=== PATIENT | female | born 1985 | race Caucasian/White ===

== ENCOUNTER 2019-11-04 02:02 | Emergency (ER) | payer BC, OTHER ==
[~2019-11-04] VITALS: Ht 162.6 cm; Wt 76.4 kg
--- NOTE | 2019-11-04 02:20 | NUR ---
Allergic reaction started Thursday; seen for same and received multiple meds which did not help. Rash to entire body and swollen lips noted; symptoms have become worse since it started. No diff swallowing or throat swelling. Patient is in NAD. Respirations even and unlabored.
[2019-11-04] MEDS ORDERED: FAMOTIDINE 20 MG TABLET PO ONE (02:30)
[2019-11-04] MEDS ORDERED: DIPHENHYDRAMINE 25 MG CAPSULE PO ONE (02:30)
[2019-11-04] MEDS ORDERED: FAMOTIDINE 20 MG TABLET ONE (02:30)
[2019-11-04] MEDS ORDERED: EPINEPHRINE 1 MG/ML, 1ML SQ ONE (02:30)
[2019-11-04] MEDS ORDERED: DIPHENHYDRAMINE 25 MG CAPSULE ONE (02:31)
[2019-11-04] MEDS ORDERED: EPINEPHRINE 1 MG/ML, 1ML ONE (02:31)
[2019-11-04 02:59] LABS: BASOPHILS # (AUTO) 0.03 x10^3/uL (0-0.1); BASOPHILS % (AUTO) 0 % (0-1); EOSINOPHILS % (AUTO) 1 % (1-7); LYMPHOCYTES # (AUTO) 2.27 x10^3/uL (1-3.4); LYMPHOCYTES % (AUTO) 24 % (22-44); MD NO; MEAN CORPUSCULAR HGB CONC 33.5 g/dL (32.4-35.8); MEAN CORPUSCULAR VOLUME 95.4 fL (80-100); MEAN PLATELET VOLUME 8.7 fL (7.4-10.4); MONOCYTES # (AUTO) 0.18 x10^3/uL (0.2-0.8); MONOCYTES % (AUTO) 2 % (2-9); NEUTROPHILS # (AUTO) 6.85 x10^3/uL (1.8-6.8); NEUTROPHILS % (AUTO) 73 % (42-75); PLATELET COUNT 161 x10^3/uL (130-400); RED BLOOD COUNT 4.12 x10^6/uL (3.82-5.3); RED CELL DISTRIBUTION WIDTH 12.7 % (9.6-15.2)
[2019-11-04 03:08] LABS: ALANINE AMINOTRANSFERASE 17 U/L (12-78); ALBUMIN 3.5 g/dL (3.4-5.0); ANION GAP 7 mmol/L (5-15); CALCIUM 8.6 mg/dL (8.5-10.1); CHLORIDE 112 mmol/L (98-107); CREATININE 0.55 mg/dL (0.55-1.02)
[2019-11-04 03:12] LABS: ALKALINE PHOSPHATASE 52 U/L (45-117); BILIRUBIN,TOTAL 0.3 mg/dL (0.2-1.0); TOTAL PROTEIN 6.8 g/dL (6.4-8.2)
[2019-11-04 03:50] VITALS: BP 129/80
== END 2019-11-04 04:03 | disposition home or self-care (01) ==
LOC: ED 02:57
DX: L50.9 Urticaria, unspecified (principal)
CPT/HCPCS: 36415; 80053; 84703; 85025; 96372; 99283; J0171; Q0163